=== PATIENT | female | born 1965 | race Caucasian/White ===

== ENCOUNTER 2024-12-15 12:34 | Outpatient (CLI) | payer MEDICAID | END 2024-12-15 23:59 | disposition home or self-care (01) | LOC: MRI02 12:34 | PROVIDERS: ATTEND Nurse Practitioner Family | DX: M25.561 Pain in right knee (principal); G89.29 Other chronic pain; M70.41 Prepatellar bursitis, right knee | CPT/HCPCS: 73721 ==